=== PATIENT | male | born 1980 | race Caucasian/White ===

== ENCOUNTER 2017-01-12 12:45 | Emergency (ER) | payer OTHER ==
--- NOTE | 2017-01-12 12:52 | CPEKG ---
Heart Rate: 84 RR Interval: 714 P-R Interval: 148 QRSD Interval: 134 QT Interval: 396 QTC Interval: 469 P [place]: 50 QRS [place]: 58 T Wave [place]: -24 EKG Severity - ABNORMAL ECG - EKG Impression: SINUS RHYTHM EKG Impression: PROBABLE LEFT ATRIAL ABNORMALITY EKG Impression: RIGHT BUNDLE BRANCH BLOCK Electronically Signed By: Ruthie Johnson 12-Jan-2017 21:13:13
[2017-01-12 13:00] LABS: % IMMATURE GRANULYOCYTES 0.2 % (0.0-1.1); ABSOLUTE IMMATURE GRANULOCYTES 0.02 10^3/uL (0.00-0.10); ADD DIFF? NO; ADD MORPH? NO; ADD SCAN? NO; ATYPICAL LYMPHOCYTE FLAG 10 (0-99); FRAGMENT RBC FLAG 0 (0-99); HEMATOCRIT 45.4 % (40.0-51.0); HEMOGLOBIN 16.3 g/dL (13.7-17.5); LEFT SHIFT FLG 0 (0-99); LIPEMIA HEMOLYSIS FLAG 90 (0-99); MEAN CELL HEMOGLOBIN 32.1 pg (27.9-34.1); MEAN CELL HEMOGLOBIN CONCENTR. 35.9 g/dL (32.4-36.7); MEAN CELL VOLUME 89.4 fL (81.5-99.8); MEAN PLATELET VOLUME 9.6 fL (8.7-11.7); PLATELET CLUMPS FLAG 10 (0-99); PLATELET COUNT 205 10^3/uL (150-400); RED BLOOD CELL COUNT 5.08 10^6/uL (4.40-6.38); RED CELL DISTRIBUTION WIDTH 11.9 % (11.5-15.2)
--- NOTE | 2017-01-12 13:04 | EDPHY ---
H & P Time Seen by Provider: 01/12/17 12:55 HPI/ROS: CHIEF COMPLAINT: Chest pain HISTORY OF PRESENT ILLNESS: 36-year-old male with a history of aortic regurgitation presents with chest pain. Onset of chest pain at noon today. The chest pain is described as a pressure sensation, associated with diaphoresis and near-syncope. He also had visual changes and bilateral pain and cramping in his hands. The chest discomfort is rated 7/10 and has been intermittent. Yesterday he had an IM injection of withdrawal for alcohol withdrawal. He also started gabapentin this morning. He took his 1st dose at 10:00 a.m.. Cardiac risk factors positive for smoking. No family history; no hypertension, diabetes or hypercholesterolemia. REVIEW OF SYSTEMS: Constitutional: No fever, no chills Eyes: No visual changes ENT: No sore throat Respiratory: No cough, no shortness of breath Gastrointestinal: No nausea, no vomiting, no abdominal pain Genitourinary: No hematuria, no dysuria Musculoskeletal: No leg pain or swelling Skin: No rash Neurological: No headache Psychiatric: No depression Past Medical/Surgical History: Bicuspid aortic valve with severe aortic regurgitation Anxiety Alcoholism Social History: with kids Smoking Status: Never smoked Physical Exam: General Appearance: Alert, no distress Eyes: Pupils equal and round, no conjunctival pallor or injection ENT, Mouth: Mucous membranes moist Neck: Normal inspection Respiratory: Lungs are clear to auscultation Cardiovascular: Regular rate and rhythm Gastrointestinal: Abdomen is soft and non- tender Neurological: A&O, nonfocal, normal gait Skin: Warm and dry, no rash Extremities: Nontender, no pedal edema Psychiatric: Mood and affect normal Constitutional: Initial Vital Signs Temperature (C) 36.5 C 01/12/17 12:49 Heart Rate 97 01/12/17 12:49 Respiratory Rate 18 01/12/17 12:49 O2 Sat (%) 95 01/12/17 12:49 O2 Delivery Mode Room Air Allergies/Adverse Reactions: No Known Allergies Allergy (Unverified 01/12/17 12:49) Home Medications: Medication Instructions Recorded Gabapentin 600 mg PO DAILY PRN 01/12/17 Naltrexone Microspheres [Vivitrol] 380 mg IM Q28D 01/12/17 Naproxen Sodium [Aleve 220 MG (*)] 440 mg PO DAILY PRN 01/12/17 Rizatriptan Benzoate [Maxalt 10mg] 10 mg PO ONETIMEPRN PRN 01/12/17 buPROPion SR [Wellbutrin 100mg SR 100 mg PO BID 01/12/17 (*)] Medical Decision Making - Diagnostics EKG Interpretation: EKG interpreted by me reveals normal sinus rhythm, rate 84, right bundle branch block. No old EKGs for comparison. Imaging Results: Imaging Impressions Chest X-Ray 01/12/17 12:55 Impression: Possible airways disease. Is there any wheezing? Imaging: I viewed and interpreted images myself (normal) ED Course/Re-evaluation: This 36-year-old male with history of aortic regurgitation presents with acute chest pain. Will proceed with cardiac workup including labs, chest x-ray, and EKG. 324mg PO Aspirin administered. Labs obtained. D-dimer and troponin are both negative. Chest x-ray reviewed by myself reveals no acute disease. 1350: On reevaluation, the patient states that he is feeling better. I discussed with him my recommendation for admission for continued cardiac observation. He agrees with this plan. 1408: Consultation with Dr. Amy Newberry, hospitalist, who accepts admission. The patient will be admitted to the [facility] for cardiac observation. 1430: The patient is refusing admission. He does wish to stay for a repeat troponin; if not elevated, he will be discharged home. 1450: Repeat troponin is negative. 1700: troponin negative. Will d/c pt home. Unclear etiology of constellation of symptoms, query whether the gabapentin contributed to the symptoms. In any case, there is no evidence of an acute cardiopulmonary etiology for the symptoms. I feel that he is safe and stable for discharge home. He will follow up with a varnishing unit operator for further evaluation. Differential Diagnosis: The differential diagnosis for the patient's chest pain included but was not limited to myocardial ischemia, pulmonary embolus, chest wall pain, pleural inflammation, and pulmonary infectious causes. - Data Points Laboratory Results: Laboratory Results 01/12/17 12:55 01/12/17 12:55 01/12/17 01/12/17 01/12/17 12:55 12:55 12:55 WBC RBC Hgb Hct MCV MCH MCHC RDW Plt Count MPV Neut % (Auto) Lymph % (Auto) [place] % (Auto) Eos % (Auto) Baso % (Auto) Nucleat RBC Rel Count Absolute Neuts (auto) Absolute Lymphs (auto) Absolute Monos (auto) Absolute Eos (auto) Absolute Basos (auto) Absolute Nucleated RBC Immature Gran % Immature Gran # D-Dimer < 0.27 ug/mLFEU ug/mLFEU (0.00-0.50) Sodium 145 mEq/L H mEq/L (134-144) Potassium 3.7 mEq/L mEq/L (3.5-5.2) Chloride 110 mEq/L mEq/L (97-110) Carbon Dioxide 22 mEq/l mEq/l (22-31) Anion Gap 13 mEq/L mEq/L (8-16) BUN 12 mg/dL mg/dL (7-23) Creatinine 0.8 mg/dL mg/dL (0.7-1.3) Estimated GFR > 60 Glucose 101 mg/dL H mg/dL (70-100) Calcium 10.3 mg/dL mg/dL (8.5-10.4) Troponin I < 0.012 ng/mL ng/mL (0-0.034) NT-Pro-B Natriuret Pep 23 pg/mL pg/mL (0-125) 01/12/17 12:55 WBC 8.83 10^3/uL 10^3/uL (3.80-9.50) RBC 5.08 10^6/uL 10^6/uL (4.40-6.38) Hgb 16.3 g/dL g/dL (13.7-17.5) Hct 45.4 % % (40.0-51.0) MCV 89.4 fL fL (81.5-99.8) MCH 32.1 pg pg (27.9-34.1) MCHC 35.9 g/dL g/dL (32.4-36.7) RDW 11.9 % % (11.5-15.2) Plt Count 205 10^3/uL 10^3/uL (150-400) MPV 9.6 fL fL (8.7-11.7) Neut % (Auto) 67.5 % % (39.3-74.2) Lymph % (Auto) 21.1 % % (15.0-45.0) [place] % (Auto) 9.4 % % (4.5-13.0) Eos % (Auto) 1.1 % % (0.6-7.6) Baso % (Auto) 0.7 % % (0.3-1.7) Nucleat RBC Rel Count 0.0 % % (0.0-0.2) Absolute Neuts (auto) 5.96 10^3/uL 10^3/uL (1.70-6.50) Absolute Lymphs (auto) 1.86 10^3/uL 10^3/uL (1.00-3.00) Absolute Monos (auto) 0.83 10^3/uL H 10^3/uL (0.30-0.80) Absolute Eos (auto) 0.10 10^3/uL 10^3/uL (0.03-0.40) Absolute Basos (auto) 0.06 10^3/uL 10^3/uL (0.02-0.10) Absolute Nucleated RBC 0.00 10^3/uL 10^3/uL (0-0.01) Immature Gran % 0.2 % % (0.0-1.1) Immature Gran # 0.02 10^3/uL 10^3/uL (0.00-0.10) D-Dimer Sodium Potassium Chloride Carbon Dioxide Anion Gap BUN Creatinine Estimated GFR Glucose Calcium Troponin I NT-Pro-B Natriuret Pep Medications Given: Discontinued Medications Aspirin (Aspirin) 324 mg PO EDNOW ONE Stop: 01/12/17 13:12 Last Admin: 01/12/17 13:15 Dose: 324 mg Departure - Departure Disposition: Home, Routine, Self-Care Clinical Impression: Chest pain Qualifiers: Chest pain type: unspecified Qualified Code(s): R07.9 - Chest pain, unspecified Condition: Good Report Scribed for: Ruthie Johnson Report Scribed by: Raya Caldera Date of Report: 01/12/17 Time of Report: 13:01 Physician Review and Approval Statement: 01/12/17 13:01 Portions of this note were transcribed by a medical records library professor. I personally performed a history, physical exam, medical decision making, and confirmed accuracy of information the transcribed note.
[2017-01-12] MEDS ORDERED: ASPIRIN 81 MG CHEWABLE TAB PO ONE (13:11)
[2017-01-12 13:12] LABS: ANION GAP 13 mEq/L (8-16); CALCIUM 10.3 mg/dL (8.5-10.4); CARBON DIOXIDE 22 mEq/l (22-31); CHLORIDE 110 mEq/L (97-110); CREATININE 0.8 mg/dL (0.7-1.3); GLOMERULAR FILTRATION RATE > 60; GLUCOSE 101 mg/dL (70-100); POTASSIUM 3.7 mEq/L (3.5-5.2); SODIUM 145 mEq/L (134-144)
[2017-01-12 13:24] LABS: TROPONIN I < 0.012 ng/mL (0-0.034)
[2017-01-12 13:57] VITALS: RESP 20
--- NOTE | 2017-01-12 16:01 | GDS ---
[f rep st] DISCHARGE SUMMARY DISCHARGE DIAGNOSES: Chest symptoms/medication effect. Please see admission history and physical by Dr. Fredi Banda. The patient had a second negative troponin and he was discharged home. /[id number]/MODL
--- NOTE | 2017-01-12 16:11 | GHP ---
[f rep st] HISTORY AND PHYSICAL DATE OF ADMISSION: 01/12/2017 HISTORY OF PRESENT ILLNESS: Patient is a 36-year-old gentleman with a history of known right bundle branch block and bicuspid aortic valve, presents with unusual constellation of chest symptoms. He is currently getting outpatient injection called Vivitrol for substance abuse. He had his 1st injec tion yesterday. He took 100 mg of gabapentin this morning at which time he felt lightheaded and rusty e fluttering in his chest. He denies palpitations or anginal-type symptoms. He does not have known coronary disease nor does he have a family history of early coronary disease, does not use cocaine. He is currently in recovery from alcohol. He still remains lightheaded and dizzy but less so. He has taken gabapentin before without the same results. He does not have heart failure symptoms such as PND, orthopnea, lower extremity edema. Rachael garcia has had a stress test in the last 3 months which was negative for any ischemia. REVIEW OF SYSTEMS: Complete 10-point review of systems conducted and negative except as noted in HP I. PAST MEDICAL HISTORY: 1. Alcoholism, now in remission. 2. Bicuspid aortic valve. HOME MEDICATIONS: Gabapentin and Vivitrol. SOCIAL HISTORY: Occasional cigarette, maybe 2-3 a day. No drugs, alcohol in remission. FAMILY HISTORY: Negative for early coronary disease. Grandfather had bicuspid aortic valve. PHYSICAL EXAMINATION: PRESENTING VITAL SIGNS: Blood pressure 143/71, pulse 81, breathing 20 times a minute, 97% on room air. GENERAL: In no acute distress. HEENT: Sclerae anicteric. Oropharynx clear. Mucous membranes moist. NECK: Supple without lymphadenopathy or JVD. LUNGS: Clear to aus cultation bilaterally. HEART: S1, S2. There is a diastolic murmur heard at the left lower sternal border. LOWER EXTREMITIES: Without edema. Calves nontender. SKIN: Without rash. NEUROLOGIC: No nfocal. LABORATORY DATA: Sodium 145, potassium , chloride 110, bicarb 23, BUN 12, creatinine 0.8, glucose 101, troponin less than 0.012. BNP is 23, D-dimer is negative. CBC is normal. Chest x-ray, interpreted by me, shows no acute cardiopulmonary disease. EKG, interpreted by me, shows right bundle branch block pattern in sinus at [address]-T w ave changes. I have discussed the case with Dr. Ruthie Johnson. ASSESSMENT/PLAN: A 36-year-old gentleman with chest symptoms after taking gabapentin and Vivitrol w hich is naltrexone. 1. Chest symptoms. The patient is adamant this is not chest pain. He attributes it to the combinat ion of these medications. It does not sound anginal equivalent. I suggested the patient stay overn ight to monitor for arrhythmia which this certainly could be. The patient is reluctant to stay. It is a 20% co-pay. We agree that a repeat troponin would be checked and if it is negative it would b e reasonable for him to leave the hospital. He contracts to come back should there be any additiona l symptoms. 2. Alcoholism is currently in remission. 3. Hyponatremia. It is mild, no further workup. 4. Elevated glucose. This is nonfasting sample. 5. Right bundle branch block pattern. This is old per him, requires no further workup. DISPOSITION: Suggest home after a 2nd negative troponin. /[id number]/MODL
[2017-01-12 17:39] VITALS: BP 122/71; PULSE 75; TEMP 98.1; O2SAT 97
== END 2017-01-12 17:39 | disposition home or self-care (01) ==
LOC: UNDOADMOB 14:08
DX: R07.89 Other chest pain (principal)